=== PATIENT | male | born 1995 | race Caucasian/White ===

== ENCOUNTER 2017-08-21 23:27 | Emergency (ER) | payer BC ==
[2017-08-21] MEDS ORDERED: Mag-Al 1200 mg/1200 mg/30 ML UDCUP ONE (23:56)
[2017-08-21] MEDS ORDERED: Lidocaine Viscous Sol 2% 15 ml UD Cup ONE (23:56)
--- NOTE | 2017-08-22 00:04 | RAD ---
CHEST TWO VIEWS 08/21/17 COMPARISON: 06/20/17 HISTORY: Intermittent chest pain. FINDINGS: No pneumothorax, pleural fluid, focal consolidation, or alveolar edema. Heart and mediastinal contour s are grossly unremarkable. IMPRESSION: No acute findings. POS: [facility]
--- NOTE | 2017-09-08 19:56 | EKG ---
Test Reason : Blood Pressure : / mmHG Vent. Rate : 088 BPM Atrial Rate : 088 BPM P-R Int : 142 ms QRS Dur : 090 ms QT Int : 348 ms P-R-T Axes : 036 029 038 degrees QTc Int : 421 ms Normal sinus rhythm Normal ECG Confirmed by ZACHARY GALLAGHER ([id number]), editor map EDWIGE BROOKS ([id number]) on 09/08/2017 7:55:10 PM Referred By: [email or web address] Confirmed By:ZACHARY GALLAGHER
== END 2017-08-22 00:21 | disposition home or self-care (01) ==
LOC: ERS 23:27
DX: R07.2 Precordial pain (principal); F17.210 Nicotine dependence, cigarettes, uncomplicated
CPT/HCPCS: 71046; 93005; 99406

== ENCOUNTER 2019-01-29 20:46 | Emergency (ER) | payer BC, OTHER ==
[2019-01-29] MEDS ORDERED: Lidocaine 1% w/Epinephrine 1:100K 20 ML VIAL ONE (21:28)
[2019-01-29] MEDS ORDERED: Adacel (T-DAP) 0.5 ML SYRINGE ONE (21:33)
== END 2019-01-29 21:56 | disposition home or self-care (01) ==
LOC: SCSER 20:46
DX: S51.011A Laceration without foreign body of right elbow, initial encounter (principal); F17.210 Nicotine dependence, cigarettes, uncomplicated; Z23 Encounter for immunization; W26.8XXA Contact with other sharp object(s), not elsewhere classified, initial encounter
CPT/HCPCS: 12002; 90471; 90715; J2001